=== PATIENT | male | born 1965 | race Caucasian/White ===

== ENCOUNTER 2025-05-06 07:23 | Day surgery (SDC) | payer OTHER, SELFPAY ==
--- NOTE | 2025-05-06 | PATH_ITS ---
[facility] Accession Number: [id number] No. of containers..02 Tissue . 01 Material submitted: . PART A: esophagus - ESOPHAGUS PART B: stomach - ANTRAL . 01 Diagnosis: A. ESOPHAGUS: Squamous epithelium with reactive epithelial changes suggestive of reflux. Squamocolumnar jucntional mucosa with mild chronic inflammation. No goblet cell metaplasia or fungal organisms identified on AB-PAS stain with control staining appropriately. No dysplasia or malignancy. . B. ANTRUM: Mild chronic gastritis. No Helicobacter pylori organisms identified on immunohistochemical evaluation. No intestinal metaplasia, dysplasia, or malignancy. PRISCILLA 05/13/2025 1002 Local . 01 Electronically signed: . Carolyn Boothe MD, Pathologist NPI- [id number] . 01 Gross description: . Received are two formalin-filled containers both labeled with the patient's name. . A. In a container labeled esophageal, are four fragments of coello, soft tissue which range in size from less than 0.1 cm to 0.4 x 0.2 x 0.2 cm. All fragments are totally submitted in cassette A1. B. In a container labeled antral biopsies, are two fragments of coello, soft tissue which range in size from 0.3 x 0.2 x 0.2 cm to 0.5 x 0.2 x 0.2 cm. All fragments are totally submitted in cassette B1. ([id number]) /PRISCILLA 05/09/2025 0537 Local . 01 Microscopic: . B. An immunohistochemical stain was performed to evaluate for Helicobacter organisms and is negative. The control stain showed appropriate reactivity. . . * This test was developed and the performance characteristics were validated by [employer]. It has not been cleared or approved by the [place]. Food and Drug Administration. . 01 Pathologist provided ICD-10: K21.9, K29.70 . 01 CPT . 317873, 612263, E65457, 176308 Specimen Comment: A courtesy copy of this report has been sent to [facility]ology Performed at: [address] [id number] MD Rico Zambrano MD Phone: [phone]
--- NOTE | 2025-05-06 07:46 | PM.HP.IH.1 ---
History of Present Illness History of Present Illness Date Patient Seen: 05/06/25 Time Patient Seen: 07:46 Chief complaint: SDC Narrative: Patient presents for EGD today to evaluate GERD symptoms. Meds Home Medications and Allergies Home Medications ?Medication ?Instructions ?Recorded ?Confirmed ?Type allopurinol 100 mg tablet 100 mg PO DAILY #90 tabs 02/24/25 04/29/25 Rx aspirin 81 mg tablet,delayed 81 mg PO DAILY 02/24/25 04/29/25 History release (Adult Low Dose Aspirin) atorvastatin 20 mg tablet 20 mg PO DAILY #90 tabs 02/24/25 04/29/25 Rx lisinopril 10 mg tablet 10 mg PO DAILY #90 tabs 02/24/25 04/29/25 Rx famotidine 20 mg tablet 20 mg PO BID 03/03/25 04/29/25 History meloxicam 15 mg tablet 15 mg PO DAILY #90 tabs 03/04/25 04/29/25 Rx diclofenac sodium 1 % topical gel 2 g topical QID #50 grams 04/29/25 04/29/25 Rx (Voltaren Arthritis Pain) semaglutide 0.25 mg or 0.5 mg (2 0.5 mg (0.736 mL) SUBCUT QWEEK #6 05/05/25 Rx mg/3 mL) subcutaneous pen injector mL Allergies Allergy/AdvReac Type Severity Reaction Status Date / Time No Known Drug Allergies Allergy Verified 05/06/25 07:46 Exam Const General: comfortable Orientation: alert and oriented x3 Resp Effort & Inspection: normal respiratory effort and able to speak in complete sentences Cardio Rate: regular rate GI Palpation: soft (NT) Extrem General: no pedal edema and no calf tenderness Assessment & Plan Assessment and plan (1) Chronic cough due to gastroesophageal reflux disease: Status: Acute Plan Plan Plan EGD with biopsy. The risks, benefits and options regarding the procedure were explained to the patient in detail. Risk discussion included but not limited to: perforation, bleeding, missed lesion. The patient was encouraged to ask questions and they were answered to their satisfaction. The patient understands and is agreeable to proceed. Time-Based Coding :: [TOTAL MINUTES] spent with patient and on the chart (including review of chart, obtaining history, exam, reviewing outside data, placing orders, documenting exam and treatment plan, and counseling patient) on [DATE]. [employer] Document charge(s): Yes Charge Codes Inpatient/observation care including admit and discharge same day: [id number]
[2025-05-06 07:50] VITALS: BP 130/79; PULSE 17; RESP 17; TEMP 36.1; O2SAT 94
[2025-05-06] MEDS: LACTATED RINGERS 1,000 ML 42 ML IV (07:59)
--- NOTE | 2025-05-06 08:46 | P.OP.EGD_ITS ---
Operative Date/Time/Diagnoses Date of procedure: 05/06/25 Time of procedure: 08:56 Pre-op diagnosis: GERD, cough Post-op diagnosis: other (LA Grade C/D esophagitis) Procedure & Clinicians Study performed: EGD with biopsy Same procedure(s) as scheduled: Yes Indications: 59yo M with cough/GERD, r/o HH, Castro's, H pylori Surgeon: Luis Ballesteros Anesthesia Type: MAC +/- Procedure Notes SCOAP/Timeout: Performed Procedure in detail: EGD Informed consent was obtained. The procedure, its risks, benefits, and alternatives were discussed. Patient understood and agreed to proceed. The patient was placed in the left lateral decubitus position with head elevated. Sedation given per anesthesia. The video endoscope was inserted into the oropharynx and guided under direct vision into the esophagus, stomach, and duodenum which were carefully examined. The scope was retroflexed to examine the hiatus and gastroesophageal junction. Antral biopsies were obtained for He licobacter pylori. The patient tolerated the procedure very well. There were no apparent complications. Significant EGD findings: Z-line noted at: 43cm LA Grade C/D esophagitis, short 5mm lengths of esophagitis, near circumferential involvement at GE jx, biopsies taken Patulous hiatus Mild antral gastritis, biopsies taken for H pylori No ulcer, stricture, mass Findings: gastritis and other findings (esophagitis) Specimen(s): other (antral and esophageal biopsies) Impression: LA Grade C/D esophagitis Antral gastritis, mild Biopsies pending Post-procedure Recommendations: Will call with biopsy results Plan for aftercare: PACU then home PPI BID Follow up: as needed Disposition: PACU
[2025-05-06 08:57] VITALS: BP 116/78; PULSE 79; RESP 16; TEMP 36.2; O2SAT 93
[2025-05-06 09:00] VITALS: BP 112/70; PULSE 78; RESP 16; O2SAT 93
[2025-05-06 09:06] VITALS: BP 121/83; PULSE 76; RESP 16; O2SAT 93
== END 2025-05-06 09:19 | disposition home or self-care (01) ==
PROVIDERS: PCP Student in an Organized Health Care Education/Training Program; Referring Provider Student in an Organized Health Care Education/Training Program; Visit Provider Surgery
PROC: 0DJ08ZZ Inspection of Upper Intestinal Tract, Via Natural or Artificial Opening Endoscopic (ICD-10-PCS; CPT 43239; principal; 2025-05-06 08:30)
DX: K21.9 Gastro-esophageal reflux disease without esophagitis (principal); R05.9 Cough, unspecified; K20.90 Esophagitis, unspecified without bleeding; K29.50 Unspecified chronic gastritis without bleeding
CPT/HCPCS: 43239; J2704